=== PATIENT | female | born 2000 | race African-American/Black ===

== ENCOUNTER 2022-06-19 13:49 | Emergency (ER) | payer MEDICAID ==
[~2022-06-19] VITALS: Ht 175.3 cm; Wt 54.5 kg
[2022-06-19 14:26] VITALS: BP 103/54
== END 2022-06-19 17:30 | disposition left against medical advice (07) ==
LOC: EMS 13:49
DX: Z53.21 Procedure and treatment not carried out due to patient leaving prior to being seen by health care provider (principal)